=== PATIENT | male | born 1960 | race Caucasian/White ===

== ENCOUNTER 2018-06-27 07:26 | Day surgery (SDC) | payer OTHER ==
[2018-06-27] MEDS ORDERED: LIDOCAINE HCL/PF 2% SDV 5ML VIAL ONE (07:58)
[2018-06-27 08:24] VITALS: BMI 26.8
[2018-06-27 08:30] VITALS: TEMP 97.8
[2018-06-27 10:42] VITALS: BP 110/77; PULSE 55
--- NOTE | 2018-07-02 13:05 | PATH ---
Surgical Pathology Report Patient Name: HERMELINDA WHITE [facility]. Rec. #: [id number] /Age/Gender: 1960 (Age: 57) / M Account: [id number] Location: [facility] Taken: 06/27/2018 Received: 06/27/2018 Reported: 06/28/2018 Physicians: Avinash Panchal M.D. Specimen(s) Received BX POLYP SIGMOID COLON Clinical History Colon polyps, diverticulosis Final Diagnosis SIGMOID COLON POLYP, POLYPECTOMY: HYPERPLASTIC POLYP. Electronically Signed Clair Lagunas M.D. Gross Description Received in formalin, labeled "biopsy polyp sigmoid colon" is one piece of dark, montemayor, tissue, measuring up to 0.3 cm in greatest dimension. Entirely submitted in one cassette. AE/06/27/2018 ebram/06/27/2018
== END 2018-06-27 10:30 | disposition home or self-care (01) ==
LOC: FASU-ENDO 07:26
PROVIDERS: ATTEND Internal Medicine Gastroenterology
PROC: 0DBN8ZX Excision of Sigmoid Colon, Via Natural or Artificial Opening Endoscopic, Diagnostic (ICD-10-PCS; principal; 2018-06-27 09:27)
DX: Z12.11 Encounter for screening for malignant neoplasm of colon (principal); K63.5 Polyp of colon; Z80.0 Family history of malignant neoplasm of digestive organs; Z83.71 Family history of colonic polyps; K57.30 Diverticulosis of large intestine without perforation or abscess without bleeding
CPT/HCPCS: 88305-TC